=== PATIENT | female | born 1950 | race Caucasian/White ===

== ENCOUNTER 2018-05-01 10:39 | Emergency (ER) | payer OTHER, BC ==
[~2018-05-01] VITALS: Ht 152.4 cm; Wt 74.8 kg
[2018-05-01] MEDS ORDERED: CELEXA10 MG (10:57)
[2018-05-01] MEDS ORDERED: XANAX XR0.5 MG (10:58)
[2018-05-01] MEDS ORDERED: CELEBREX200MG PO (13:23)
[2018-05-01] MEDS ORDERED: SKELAXIN800 MG PO (13:23)
== END 2018-05-01 13:38 | disposition home or self-care (01) ==
LOC: ER 10:39
DX: S52.512A Displaced fracture of left radial styloid process, initial encounter for closed fracture (principal); W18.39XA Other fall on same level, initial encounter; Y93.89 Activity, other specified; Y92.89 Other specified places as the place of occurrence of the external cause; Y99.8 Other external cause status